=== PATIENT | female | born 2005 | race African-American/Black ===

== ENCOUNTER 2025-05-25 18:01 | Emergency (ER) | payer BC, SELFPAY ==
--- NOTE | ~2025-05-25 | CT_ITS ---
CT abdomen pelvis w con INDICATION:constipation x3w, pain/bloating . COMPARISON: None. TECHNIQUE: Axial images of the abdomen and pelvis were obtained following infusion of 100 mL Isovue 300. Dose optimization technique was utilized. FINDINGS: The lung bases are clear. The liver parenchyma is unremarkable. No intrahepatic mass or ductal dilatation is evident. The gallbladder is unremarkable. The pancreas and spleen are normal in appearance. The adrenal glands are symmetric in size. The kidneys demonstrate symmetric uptake and excretion of contrast. No cystic mass is evident. There is no solid mass. There is no hydronephrosis. Evaluation of the stomach and bowel loops are limited due to lack of oral contrast. The appendix is normal in appearance. This fluid throughout the colon suggestive of an independent diarrhea. The bladder and rectum are normal. The uterus and both adnexa are unremarkable. No free intraperitoneal fluid or air is evident. There is no significant retroperitoneal lymphadenopathy. The aorta, visceral vessels and renal arteries demonstrate normal caliber and patency. The lower thoracic and lumbar vertebrae are in normal alignment. IMPRESSION: Fluid throughout the colon suggestive of diarrhea. All CT scans at this facility are performed using low dose modulation techniques as appropriate to perform exam including the following: automated exposure control; use of iterative reconstruction technique; adjustment of the mA and/or kV according to patient size (this includes techniques or standardized protocols for targeted exams where dose is matched to indication/reason for exam). Reviewed, dictated and finalized at location S. IMPRESSION: Fluid throughout the colon suggestive of diarrhea. All CT scans at this facility are performed using low dose modulation techniqu es as appropriate to perform exam including the following: automated exposure c ontrol; use of iterative reconstruction technique; adjustment of the mA and/or kV according to patient size (this includes techniques or standardized protocol s for targeted exams where dose is matched to indication/reason for exam).
[2025-05-25 18:03] VITALS: BP 138/75; PULSE 86; RESP 16; TEMP 36.4; O2SAT 97
--- NOTE | 2025-05-25 18:54 | ED_ITS ---
HPI - Abdominal Pain General Chief Complaint: Abdominal Pain <Erna Correa PA-C - Last Filed: 05/26/25 17:30> Stated Complaint: I haven't pooped in 3 weeks <Erna Correa PA-C - Last Filed: 05/26/25 17:30> Time Seen by Provider: 05/25/25 18:54 <KRISTA Thomason Last Filed: 05/26/25 17:30> Focused HPI: This is a 19 year old female that presents to the ER for constipation. Worsening over the last couple of weeks. Reports she tried milk of magnesia and magnesium citrate today without relief. Denies fever, vomiting, dysuria. GENERAL: Well-appearing, well-nourished, and in no acute distress. HEAD: Normocephalic, atraumatic. CHEST: Clear to auscultation. ?No respiratory distress. HEART: Regular rate and rhythm.? NEURO: ?Alert and oriented x3. Patient screened in triage and initial orders placed.? ?Additional care and disposition to be based upon?diagnostic testing and treatment. <Erna Correa PA-C - Last Filed: 05/26/25 17:30> Focused HPI: This is a 19 year old female that presents to the ER for constipation. Worsening over the last couple of weeks. Reports she tried milk of magnesia and magnesium citrate today without relief. Denies fever, vomiting, dysuria. GENERAL: Well-appearing, well-nourished, and in no acute distress. HEAD: Normocephalic, atraumatic. CHEST: Clear to auscultation. ?No respiratory distress. HEART: Regular rate and rhythm.? NEURO: ?Alert and oriented x3. Patient screened in triage and initial orders placed.? ?Additional care and disposition to be based upon?diagnostic testing and treatment. <Althea Duggan PA-C - Last Filed: 05/25/25 23:38> Source: patient <KRISTA Godfrey Last Filed: 05/25/25 23:38> Mode of arrival: ambulatory <KRISTA Godfrey Last Filed: 05/25/25 23:38> Limitations: no limitations <KRISTA Godfrey Last Filed: 05/25/25 23:38> History of Present Illness HPI narrative: Agree with above HPI. States she has not had a substantial bowel movement in 3 weeks. Reports diffuse abdominal pain and bloating. <KRISTA Godfrey Last Filed: 05/25/25 23:38> Related Data Allergies/Adverse Reactions: Allergies Allergy/AdvReac Type Severity Reaction Status Date / Time No Known Allergies Allergy Verified 05/25/25 18:02 <KRISTA Thomason Last Filed: 05/26/25 17:30> Review of Systems 2 Review of Systems: All systems reviewed & are unremarkable except as noted in HPI. <KRISTA Godfrey Last Filed: 05/25/25 23:38> All systems reviewed & are unremarkable except as noted in HPI and below < KRISTA Godfrey Last Filed: 05/25/25 23:38> Exam 2 Narrative: GENERAL: Well appearing, obese with BMI of 32.1, non-toxic, in no acute distress. HEAD: Normocephalic, atraumatic. RESPIRATORY: Airway patent, respirations nonlabored. Clear to auscultation bilaterally, no rales, rhonchi, wheezing. CARDIOVASCULAR: Regular rate and rhythm without murmurs, rubs, or gallops. ABDOMINAL: Soft, mild diffuse lower abdominal tenderness, no rebound, nondistended. Normoactive BS. MUSCULOSKELETAL: Moves all extremities. No gross deformities. SKIN: Warm, dry, normal color. NEURO: A&O X3. Speech clear. Steady gait. No ataxic movements. PSYCHIATRIC: Appropriate mood and affect. Normal interaction. <KRISTA Godfrey Last Filed: 05/25/25 23:38> Course Vital Signs Vital signs: Vital Signs Temperature 97.6 F 05/25/25 18:03 Pulse Rate 86 05/25/25 18:03 Respiratory Rate 16 05/25/25 18:03 Blood Pressure 138/75 05/25/25 18:03 Pulse Oximetry 97 05/25/25 18:03 Oxygen Delivery Room Air 05/25/25 18:03 Temperature 97.6 F 05/25/25 18:03 Pulse Rate 86 05/25/25 18:03 Respiratory Rate 16 05/25/25 18:03 Blood Pressure 138/75 05/25/25 18:03 Pulse Oximetry 97 05/25/25 18:03 Oxygen Delivery Room Air 05/25/25 18:03 <Erna Correa PA-C - Last Filed: 05/26/25 17:30> Vital Signs Temperature 97.6 F 05/25/25 18:03 Pulse Rate 86 05/25/25 18:03 Respiratory Rate 16 05/25/25 18:03 Blood Pressure 138/75 05/25/25 18:03 Pulse Oximetry 97 05/25/25 18:03 Oxygen Delivery Room Air 05/25/25 18:03 Temperature 97.6 F 05/25/25 18:03 Pulse Rate 86 05/25/25 18:03 Respiratory Rate 16 05/25/25 18:03 Blood Pressure 138/75 05/25/25 18:03 Pulse Oximetry 97 05/25/25 18:03 Oxygen Delivery Room Air 05/25/25 18:03 <Althea Duggan PA-C - Last Filed: 05/25/25 23:38> MDM - Abdominal Pain MDM Narrative Medical decision making narrative: Patient presented to ED with 3 week history of constipation, reporting diffuse abdominal pain/bloating. Vital signs stable upon arrival. Patient in no acute distress. Laboratory studies without acute abnormalities. Very mild anemia noted at 11.4. Stable electrolytes. Normal LFTs. UA with 2+ blood, no signs of infection. Urine negative. CT scan of abdomen/pelvis was obtained actually showing fluid within the colon suggestive of diarrhea. Patient did take multiple doses of laxatives today. Advised may be developing diarrhea. No evidence of obstruction or infection. No surgical abnormalities. Discussed lab and imaging findings, discussed further management of constipation at home. Otherwise safe for d/c currently. Given strict return precautions. She agrees with plan. Feels comfortable going home. Discharged in stable condition. <Althea Duggan PA-C - Last Filed: 05/25/25 23:38> Medical Records Attestation: I reviewed the patient's medical records. <Althea Duggan PA-C - Last Filed: 05/25/25 23:38> Lab Data Attestation: I reviewed the patient's lab results. <Althea Duggan PA-C - Last Filed: 05/25/25 23:38> Result diagrams: 05/25/25 20:18 05/25/25 20:18 <Erna Correa PA-C - Last Filed: 05/26/25 17:30> Labs: Lab Results 05/25/25 05/25/25 05/25/25 Range/Units 20:18 20:19 20:38 WBC 7.7 (4.5-10.0) K/mm3 RBC 4.39 (4.2-5.4) M/mm3 Hgb 11.4 L (12.0-15.0) g/dL Hct 37.7 (37.0-47.0) % MCV 85.9 (80-100) fl MCH 26.0 (26-34) pg MCHC 30.2 L (32-36) g/dl RDW 17.2 H (11.5-14.5) % Plt Count 356 (150-375) k/mm3 MPV 9.1 (7.4-10.4) fl Immature Gran % (Auto) 0.3 (0-0.5) % Neut % (Auto) 58.8 (45.5-73.1) % Lymph % (Auto) 34.5 (18.3-44.2) % Ness % (Auto) 5.5 (2.6-8.5) % Eos % (Auto) 0.5 (0-4.4) % Baso % (Auto) 0.4 (0.2-1.2) % Lymph # (Auto) 2.66 (0.9-3.2) K/mm3 Ness # (Auto) 0.4 (0.1-0.6) K/mm3 Eos # (Auto) 0.0 (0-0.3) K/mm3 Baso # (Auto) 0.0 (0.0-0.1) K/mm3 Abs Immat Gran (auto) 0.02 (0.00-0.031) K/mm3 Absolute Neuts (auto) 4.5 (1.3-6.7) K/mm3 Absolute Nucleated RBC 0.000 (0.0-0.012) K/mm3 Nucleated RBC % 0.0 (0.0-0.2) % Sodium 138 (137-145) mmol/L Potassium 3.5 (3.4-5.0) mmol/L Chloride 103 (98-107) mmol/L Carbon Dioxide 27 (22-30) mmol/L Anion Gap 8 (4-12) mmol/L BUN 7 (7-17) mg/dL Creatinine 0.73 (0.7-1.0) mg/dL Estim Creat Clear Calc 100 ml/min Estimated GFR > 60 (59 - ) Glucose 94 (65-110) mg/dL Calcium 8.9 (8.4-10.2) mg/dL Total Bilirubin 0.4 (0.2-1.3) mg/dL AST 31 (14-36) U/L ALT 16 (6-35) U/L Alkaline Phosphatase 105 (38-126) U/L Total Protein 8.7 H (6.3-8.2) g/dL Albumin 4.6 (3.5-5.1) g/dL Lipase 56 (23-300) U/L Urine Color Yellow (Yellow) Urine Appearance Clear (Clear) Urine pH 7.0 (5.0-9.0) Ur Specific [place] 1.002 (1.001-1.035) Urine Protein Negative (Negative) mg/dL Urine Glucose (UA) Negative (Negative) mg/dL Urine Ketones Negative (Negative) mg/dL Ur Blood (Man) 2+ H (Negative) Urine Nitrate Negative (Negative) Urine Bilirubin Negative (Negative) Urine Urobilinogen 0.2 (<2.0) mg/dL Add Ur Microanalysis Reviewed Leukocyte Esterase Rfl Negative (Negative) LINDA/UL Urine RBC 0-2 (0-2) /hpf Urine WBC 0-5 (0-3) /hpf Ur Squamous Epith Cells None seen (Few) /hpf Urine Bacteria None seen /hpf Urine Casts 0-2 POC Urine HCG, Qual Negative (Negative) <Erna Correa PA-C - Last Filed: 05/26/25 17:30> Lab Results 05/25/25 05/25/25 05/25/25 Range/Units 20:18 20:19 20:38 WBC 7.7 (4.5-10.0) K/mm3 RBC 4.39 (4.2-5.4) M/mm3 Hgb 11.4 L (12.0-15.0) g/dL Hct 37.7 (37.0-47.0) % MCV 85.9 (80-100) fl MCH 26.0 (26-34) pg MCHC 30.2 L (32-36) g/dl RDW 17.2 H (11.5-14.5) % Plt Count 356 (150-375) k/mm3 MPV 9.1 (7.4-10.4) fl Immature Gran % (Auto) 0.3 (0-0.5) % Neut % (Auto) 58.8 (45.5-73.1) % Lymph % (Auto) 34.5 (18.3-44.2) % Ness % (Auto) 5.5 (2.6-8.5) % Eos % (Auto) 0.5 (0-4.4) % Baso % (Auto) 0.4 (0.2-1.2) % Lymph # (Auto) 2.66 (0.9-3.2) K/mm3 Ness # (Auto) 0.4 (0.1-0.6) K/mm3 Eos # (Auto) 0.0 (0-0.3) K/mm3 Baso # (Auto) 0.0 (0.0-0.1) K/mm3 Abs Immat Gran (auto) 0.02 (0.00-0.031) K/mm3 Absolute Neuts (auto) 4.5 (1.3-6.7) K/mm3 Absolute Nucleated RBC 0.000 (0.0-0.012) K/mm3 Nucleated RBC % 0.0 (0.0-0.2) % Sodium 138 (137-145) mmol/L Potassium 3.5 (3.4-5.0) mmol/L Chloride 103 (98-107) mmol/L Carbon Dioxide 27 (22-30) mmol/L Anion Gap 8 (4-12) mmol/L BUN 7 (7-17) mg/dL Creatinine 0.73 (0.7-1.0) mg/dL Estim Creat Clear Calc 100 ml/min Estimated GFR > 60 (59 - ) Glucose 94 (65-110) mg/dL Calcium 8.9 (8.4-10.2) mg/dL Total Bilirubin 0.4 (0.2-1.3) mg/dL AST 31 (14-36) U/L ALT 16 (6-35) U/L Alkaline Phosphatase 105 (38-126) U/L Total Protein 8.7 H (6.3-8.2) g/dL Albumin 4.6 (3.5-5.1) g/dL Lipase 56 (23-300) U/L Urine Color Yellow (Yellow) Urine Appearance Clear (Clear) Urine pH 7.0 (5.0-9.0) Ur Specific [place] 1.002 (1.001-1.035) Urine Protein Negative (Negative) mg/dL Urine Glucose (UA) Negative (Negative) mg/dL Urine Ketones Negative (Negative) mg/dL Ur Blood (Man) 2+ H (Negative) Urine Nitrate Negative (Negative) Urine Bilirubin Negative (Negative) Urine Urobilinogen 0.2 (<2.0) mg/dL Add Ur Microanalysis Reviewed Leukocyte Esterase Rfl Negative (Negative) LINDA/UL Urine RBC 0-2 (0-2) /hpf Urine WBC 0-5 (0-3) /hpf Ur Squamous Epith Cells None seen (Few) /hpf Urine Bacteria None seen /hpf Urine Casts 0-2 POC Urine HCG, Qual Negative (Negative) <Althea Duggan PA-C - Last Filed: 05/25/25 23:38> Imaging Data Attestation: I personally reviewed and interpreted this imaging study as follows: < Althea Duggan PA-C - Last Filed: 05/25/25 23:38> Radiologist's impression: ITS Impressions Abdomen/Pelvis CT 05/25/25 21:25 IMPRESSION: Fluid throughout the colon suggestive of diarrhea. All CT scans at this facility are performed using low dose modulation techniques as appropriate to perform exam including the following: automated exposure control; use of iterative reconstruction technique; adjustment of the mA and/or kV according to patient size (this includes techniques or standardized protocols for targeted exams where dose is matched to indication/reason for exam). <Erna Correa PA-C - Last Filed: 05/26/25 17:30> ITS Impressions Abdomen/Pelvis CT 05/25/25 21:25 IMPRESSION: Fluid throughout the colon suggestive of diarrhea. All CT scans at this facility are performed using low dose modulation techniques as appropriate to perform exam including the following: automated exposure control; use of iterative reconstruction technique; adjustment of the mA and/or kV according to patient size (this includes techniques or standardized protocols for targeted exams where dose is matched to indication/reason for exam). <Althea Duggan PA-C - Last Filed: 05/25/25 23:38> Critical Care Time Critical Care Time Critical Care Time: No <KRISTA Thomason Last Filed: 05/26/25 17:30> Discharge Plan Discharge Clinical Impression: Constipation Qualifiers: Constipation type: unspecified constipation type Qualified Code(s): K59.00 - Constipation, unspecified <KRISTA Thomason Last Filed: 05/26/25 17:30> Patient Disposition: Home <KRISTA Thomason Last Filed: 05/26/25 17:30> Condition: Stable <KRISTA Thomason Last Filed: 05/26/25 17:30> Instructions: Antibiotic Form, Constipation (ED), High Fiber Diet (ED) <KRISTA Thomason Last Filed: 05/26/25 17:30> Additional Instructions: Recommend MiraLax and Dulcolax up to twice daily over the next 1 week for constipation. If you develop diarrhea, you may decrease this to once per day or every other day. Stay very well hydrated. Recommend plenty of fluids. Recommend high-fiber diet. Follow-up closely with your primary care doctor for further evaluation if needed. Return to the ED if you experience worsening or severe symptoms, severe constipation, severe pain, unable to keep down food or drink, fevers, rectal bleeding, dark black stool, or any other symptoms of concern. <KRISTA Thomason Last Filed: 05/26/25 17:30> Patient Language: Setswana <KRISTA Thomason Last Filed: 05/26/25 17:30> Follow-up/Referrals: PHYSICIAN,PRESS ROOM SUPERVISOR [Primary Care Provider, Internal Medicine] Josette Anthony DO [Physician, Family Practice] Referral Note: PRIMARY CARE <Erna Correa PA-C - Last Filed: 05/26/25 17:30> Time of Disposition: 22:47 <Erna Correa PA-C - Last Filed: 05/26/25 17:30> 22:47 <Althea Duggan PA-C - Last Filed: 05/25/25 23:38>
[2025-05-25 20:32] LABS: Hematocrit 37.7 % (37.0-47.0); Hemoglobin 11.4 g/dL (12.0-15.0); Immature Granulocyte Percent A 0.3 % (0-0.5); Lymphocytes Absolute Auto 2.66 K/mm3 (0.9-3.2); Mean Corpuscular HGB Conc 30.2 g/dl (32-36); Mean Corpuscular Hemoglobin 26.0 pg (26-34); Mean Corpuscular Volume 85.9 fl (80-100); Nucleated Red Blood Cells Absolute Auto 0.000 K/mm3 (0.0-0.012); Nucleated Red Blood Cells Perc 0.0 % (0.0-0.2); Platelet Count Result 356 k/mm3 (150-375); Red Blood Count 4.39 M/mm3 (4.2-5.4); White Blood Count 7.7 K/mm3 (4.5-10.0)
[2025-05-25 20:40] LABS: BEDSIDEPREGUCG Negative (Negative)
[2025-05-25 20:43] LABS: Add Urine Microscopic? YES; Appearance Urine Clear (Clear); Glucose Urine UA Negative (Negative); Leukocyte Esterase Ur Negative LEU/UL (Negative); Need Manual Microscopic Reviewed; Nitrate Urine Negative (Negative); Non Pathogenic Casts 0-2; Specific Grav Ur 1.002 (1.001-1.035)
[2025-05-25 20:44] LABS: Alanine Aminotransferase 16 U/L (6-35); Albumin Level 4.6 g/dL (3.5-5.1); Alkaline Phosphatase 105 U/L (38-126); Anion Gap 8 mmol/L (4-12); Aspartate Amino Transferase 31 U/L (14-36); Bilirubin,Total 0.4 mg/dL (0.2-1.3); Blood Urea Nitrogen 7 mg/dL (7-17); Calcium 8.9 mg/dL (8.4-10.2); Carbon Dioxide 27 mmol/L (22-30); Chloride 103 mmol/L (98-107); Estimated CRCL calculation 100 ml/min; Estimated Glomerular Filt Rate > 60; Glucose 94 mg/dL (65-110); Lipase 56 U/L (23-300); Potassium 3.5 mmol/L (3.4-5.0); Sodium 138 mmol/L (137-145); Total Protein 8.7 g/dL (6.3-8.2)
[2025-05-25] MEDS: SODIUM CHLORIDE 0.9% IV 1,000 ML 999 ML IV CONT (21:17)
== END 2025-05-25 22:56 | disposition home or self-care (01) ==
PROVIDERS: Physician Assistant; Emergency Provider Physician Assistant
DX: K59.00 Constipation, unspecified (principal)
CPT/HCPCS: 36415; 74177; 80053; 81001; 81025; 83690; 85025; 96360; 99284; J7030; Q9967